=== PATIENT | female | born 1960 | race Caucasian/White ===

== ENCOUNTER 2017-03-02 21:37 | Emergency (ER) | payer OTHER ==
[~2017-03-02] VITALS: Ht 162.6 cm; Wt 95.3 kg
[2017-03-02 21:40] VITALS: BP_SYST 210
[2017-03-02] MEDS ORDERED: HYDROcodone/ACETAMIN 5-325 MG TAB (NORCO/ VICODIN) PO ONE (22:30)
[2017-03-02 23:10] VITALS: BP_SYST 158
== END 2017-03-02 23:10 | disposition home or self-care (01) ==
LOC: SED 21:37
DX: M25.531 Pain in right wrist (principal); I10 Essential (primary) hypertension; Z98.890 Other specified postprocedural states
CPT/HCPCS: 99284